=== PATIENT | female | born 1995 | race Two or more races ===

== ENCOUNTER 2022-05-23 22:22 | Emergency (ER) | payer MEDICAID, OTHER ==
[~2022-05-23] VITALS: Ht 180.3 cm; Wt 54.1 kg
[2022-05-23 22:50] VITALS: BP 123/73
[2022-05-24 00:20] LABS: Urine Bacteria NONE SEEN /hpf (None Seen); Urine Blood Negative /uL (Negative); Urine Specific Gravity 1.008 (1.001-1.035); Urine WBC 20 /hpf (0 - 5)
== END 2022-05-24 01:21 | disposition home or self-care (01) ==
LOC: ER 22:25
DX: O02.0 Blighted ovum and nonhydatidiform mole (principal); O08.89 Other complications following an ectopic and molar pregnancy; Z3A.01 Less than 8 weeks gestation of pregnancy
CPT/HCPCS: 36415; 76801; 76817; 81001; 84702

== ENCOUNTER 2022-09-13 01:07 | Emergency (ER) | payer MEDICAID ==
[~2022-09-13] VITALS: Ht 180.3 cm; Wt 59.9 kg
[2022-09-13] MEDS ORDERED: PREN-96 PO (02:22)
== END 2022-09-13 02:33 | disposition home or self-care (01) ==
LOC: ER 01:07 → LDRP 01:24
PROVIDERS: ADMIT Obstetrics & Gynecology; ATTEND Obstetrics & Gynecology
DX: O26.892 Other specified pregnancy related conditions, second trimester (principal); R10.9 Unspecified abdominal pain; O62.9 Abnormality of forces of labor, unspecified; Z3A.21 21 weeks gestation of pregnancy
CPT/HCPCS: 59025; 81002; 94760; G0378